=== PATIENT | male | born 1950 | race Caucasian/White ===

== ENCOUNTER → 2017-11-23 08:45 | Outpatient (CLI) | payer MEDICARE, SELFPAY ==
[2017-11-23 09:35] LABS: BUN Creatinine Ratio 11.7 (6-22); Blood Urea Nitrogen 14 mg/dL (9-20); Calcium 9.3 mg/dL (8.4-10.2); Carbon Dioxide 30 mmol/L (22-32); Chloride 103 mmol/L (98-107); Estimated Glomerular Filt Rate > 60.0 mL/min (>60); Glucose 92 mg/dL (80-110); HEMOLYSIS < 15 (0-50); Potassium 4.2 mmol/L (3.4-5.1); Sodium 144 mmol/L (137-145); Uric Acid 6.1 mg/dL (3.5-8.5)
== END ==
PROVIDERS: PCP Internal Medicine; Visit Provider Internal Medicine
DX: M10.00 Idiopathic gout, unspecified site (principal)
CPT/HCPCS: 36415; 80048; 84550

== ENCOUNTER → 2018-03-02 07:31 | Outpatient (CLI) | payer MEDICARE, SELFPAY ==
[2018-03-02 08:39] LABS: Blood Urea Nitrogen 11 mg/dL (9-20); Calcium 9.6 mg/dL (8.4-10.2); Carbon Dioxide 28 mmol/L (22-32); Chloride 106 mmol/L (98-107); Estimated Glomerular Filt Rate > 60.0 mL/min (>60); Glucose 91 mg/dL (80-110); HEMOLYSIS < 15 (0-50); Potassium 4.5 mmol/L (3.4-5.1); Sodium 142 mmol/L (137-145); Uric Acid 3.6 mg/dL (3.5-8.5)
== END ==
PROVIDERS: PCP Internal Medicine; Visit Provider Internal Medicine
DX: M10.00 Idiopathic gout, unspecified site (principal); N18.9 Chronic kidney disease, unspecified; I12.9 Hypertensive chronic kidney disease with stage 1 through stage 4 chronic kidney disease, or unspecified chronic kidney disease
CPT/HCPCS: 36415; 80048; 84550

== ENCOUNTER → 2018-08-29 09:22 | Outpatient (CLI) | payer MEDICARE, SELFPAY ==
[2018-08-29 11:07] LABS: BUN Creatinine Ratio 12.7 (6-22); Blood Urea Nitrogen 14 mg/dL (9-20); Calcium 9.6 mg/dL (8.4-10.2); Carbon Dioxide 28 mmol/L (22-32); Chloride 105 mmol/L (98-107); Cholesterol 164 mg/dL (140-199); Estimated Glomerular Filt Rate > 60.0 mL/min (>60); Glucose 92 mg/dL (80-110); HDL Cholesterol 30 mg/dL (40-60); HEMOLYSIS < 15 (0-50); LDL Cholesterol Calculated 105 mg/dL (<100); Potassium 4.7 mmol/L (3.4-5.1); Sodium 140 mmol/L (137-145); Triglycerides 144 mg/dL (35-150); Uric Acid 3.4 mg/dL (3.5-8.5)
== END ==
PROVIDERS: PCP Internal Medicine; Visit Provider Internal Medicine
DX: M10.00 Idiopathic gout, unspecified site (principal); I10 Essential (primary) hypertension; E78.00 Pure hypercholesterolemia, unspecified
CPT/HCPCS: 36415; 80048; 80061; 84550

== ENCOUNTER → 2019-03-09 08:41 | Outpatient (CLI) | payer MEDICARE, SELFPAY ==
[2019-03-09 10:18] LABS: BUN Creatinine Ratio 12.5 (6-22); Blood Urea Nitrogen 15 mg/dL (9-20); Calcium 9.4 mg/dL (8.4-10.2); Carbon Dioxide 29 mmol/L (22-32); Chloride 102 mmol/L (98-107); Estimated Glomerular Filt Rate > 60.0 mL/min (>60); Glucose 93 mg/dL (80-110); HEMOLYSIS < 15 (0-50); Potassium 4.5 mmol/L (3.4-5.1); Sodium 140 mmol/L (137-145)
[2019-03-09 10:49] LABS: Prostate Specific Antigen Scrn 2.82 ng/mL (0.1-4.0)
== END ==
PROVIDERS: PCP Internal Medicine; Visit Provider Internal Medicine
DX: Z00.00 Encounter for general adult medical examination without abnormal findings (principal); E78.00 Pure hypercholesterolemia, unspecified; Z12.5 Encounter for screening for malignant neoplasm of prostate
CPT/HCPCS: 36415; 80048; G0103

== ENCOUNTER → 2020-02-10 08:08 | Outpatient (CLI) | payer MEDICARE, SELFPAY ==
[2020-02-10 10:19] LABS: TSH w/ Reflex to FT4 2.79 uIU/mL (0.47-4.68)
== END ==
PROVIDERS: PCP Internal Medicine; Referring Provider Internal Medicine; Visit Provider Internal Medicine
DX: E03.8 Other specified hypothyroidism (principal); E03.9 Hypothyroidism, unspecified
CPT/HCPCS: 36415; 84443

== ENCOUNTER → 2020-05-11 08:16 | Outpatient (CLI) | payer MEDICARE, SELFPAY ==
[2020-05-11 09:15] LABS: Add Manual Diff / Slide Review NO; Basophils Absolute Auto 0 /uL (0-100); Basophils Percent Auto 0.9 % (0-2); Eosinophils Absolute Auto 100 /uL (0-450); Eosinophils Percent Auto 2.3 % (2-4); Hematocrit 44.1 % (41-53); Hemoglobin 14.9 g/dL (13.5-17.5); Lymphocytes Absolute Auto 800 /uL (1100-4500); Lymphocytes Percent Auto 15.3 % (25-40); Mean Corpuscular HGB Conc 33.9 % (30-36); Mean Corpuscular Hemoglobin 30.1 PG (26-34); Mean Corpuscular Volume 88.7 fL (80-100); Monocytes Absolute Auto 300 /uL (0-900); Monocytes Percent Auto 6.8 % (3-14); Neutrophils Absolute Auto 3700 /uL (1500-7000); Neutrophils Percent Auto 74.7 % (50-75); Platelet Count 179 X10^3/uL (150-400); Red Blood Cell Count 4.96 X10^6/uL (4.5-5.9); Red Cell Distribution Width 13.4 % (11.6-14.8); White Blood Cell Count 4.9 X10^3/uL (4.5-11.0)
[2020-05-11 09:44] LABS: Alanine Aminotransferase 24 IU/L (<50); Albumin 4.1 g/dL (3.5-5.0); Albumin Globulin Ratio 1.5 (1.0-2.8); Alkaline Phosphatase 56 U/L (38-126); Aspartate Aminotransferase 30 IU/L (17-59); BUN Creatinine Ratio 14.8 (6-22); Bilirubin Total 0.8 mg/dL (0.2-1.3); Blood Urea Nitrogen 17 mg/dL (9-20); Calcium 9.6 mg/dL (8.4-10.2); Carbon Dioxide 29 mmol/L (22-32); Chloride 104 mmol/L (98-107); Cholesterol 163 mg/dL (140-199); Estimated Glomerular Filt Rate > 60.0 mL/min (>60); Globulin 2.7 g/dL (1.7-4.1); Glucose 99 mg/dL (80-110); HDL Cholesterol 30 mg/dL (40-60); HEMOLYSIS < 15 (0-50); LDL Cholesterol Calculated 110 mg/dL (<100); Potassium 4.7 mmol/L (3.4-5.1); Sodium 137 mmol/L (137-145); Total Protein 6.8 g/dL (6.3-8.2); Triglycerides 115 mg/dL (35-150); Uric Acid 4.3 mg/dL (3.5-8.5)
[2020-05-11 10:12] LABS: TSH w/ Reflex to FT4 1.81 uIU/mL (0.47-4.68)
[2020-05-11 10:14] LABS: Prostate Specific Antigen Scrn 2.29 ng/mL (0.1-4.0)
== END ==
PROVIDERS: PCP Internal Medicine; Referring Provider Internal Medicine; Visit Provider Internal Medicine
DX: E03.9 Hypothyroidism, unspecified (principal); Z12.5 Encounter for screening for malignant neoplasm of prostate; E78.00 Pure hypercholesterolemia, unspecified; M10.00 Idiopathic gout, unspecified site
CPT/HCPCS: 36415; 80053; 80061; 84443; 84550; 85025; G0103

== ENCOUNTER → 2022-04-02 14:55 | Outpatient (CLI) | payer MEDICARE, SELFPAY ==
[2022-04-02 15:51] LABS: Hematocrit 43.8 % (41-53); Hemoglobin 15.3 g/dL (13.5-17.5); Mean Corpuscular HGB Conc 34.9 % (30-36); Mean Corpuscular Hemoglobin 30.7 PG (26-34); Platelet Count 194 X10^3/uL (150-400); Red Blood Cell Count 4.98 X10^6/uL (4.5-5.9); Red Cell Distribution Width 13.8 % (11.6-14.8); White Blood Cell Count 6.5 X10^3/uL (4.5-11.0)
[2022-04-02 16:46] LABS: TSH w/ Reflex to FT4 0.78 uIU/mL (0.47-4.68)
[2022-04-02 18:39] LABS: Alanine Aminotransferase 19 IU/L (<50); Albumin 4.7 g/dL (3.5-5.0); Albumin Globulin Ratio 1.3 (1.0-2.8); Alkaline Phosphatase 56 U/L (38-126); Aspartate Aminotransferase 28 IU/L (17-59); BUN Creatinine Ratio 12.9 (6-22); Bilirubin Total 0.9 mg/dL (0.2-1.3); Blood Urea Nitrogen 16 mg/dL (9-20); Calcium 9.8 mg/dL (8.4-10.2); Carbon Dioxide 29 mmol/L (22-32); Chloride 101 mmol/L (98-107); Cholesterol 218 mg/dL (140-199); Estimated Glomerular Filt Rate > 60 mL/min (>60); Globulin 3.5 g/dL (1.7-4.1); Glucose 96 mg/dL (80-110); HDL Cholesterol 32 mg/dL (40-60); HEMOLYSIS < 15 (0-50); LDL Cholesterol Calculated 144 mg/dL (<100); Potassium 4.6 mmol/L (3.4-5.1); Sodium 141 mmol/L (137-145); Total Protein 8.2 g/dL (6.3-8.2); Triglycerides 208 mg/dL (35-150); Uric Acid 3.6 mg/dL (3.5-8.5)
[2022-04-02 19:00] LABS: Prostate Specific Antigen 3.36 ng/mL (0.10-4.00)
[2022-04-02 19:02] LABS: Testosterone 363 ng/dL (71.8-623)
== END ==
PROVIDERS: PCP Internal Medicine; Referring Provider Internal Medicine; Visit Provider Internal Medicine
DX: E03.9 Hypothyroidism, unspecified (principal); E78.2 Mixed hyperlipidemia; N40.0 Benign prostatic hyperplasia without lower urinary tract symptoms; M10.9 Gout, unspecified; E34.9 Endocrine disorder, unspecified
CPT/HCPCS: 36415; 80053; 80061; 84153; 84403; 84443; 84550; 85027

== ENCOUNTER → 2023-04-05 08:32 | Outpatient (CLI) | payer MEDICARE, SELFPAY ==
[2023-04-05 10:09] LABS: Aspartate Aminotransferase 29 IU/L (17-59); BUN Creatinine Ratio 15.9 (6-22); Blood Urea Nitrogen 21 mg/dL (9-20); Calcium 9.9 mg/dL (8.4-10.2); Carbon Dioxide 29 mmol/L (22-32); Chloride 105 mmol/L (98-107); Cholesterol 109 mg/dL (140-199); Estimated Glomerular Filt Rate 58 mL/min (>60); Glucose 97 mg/dL (80-110); HDL Cholesterol 32 mg/dL (40-60); HEMOLYSIS < 15 (0-50); LDL Cholesterol Calculated 56 mg/dL (<100); Potassium 4.7 mmol/L (3.4-5.1); Sodium 140 mmol/L (137-145); Triglycerides 104 mg/dL (35-150)
[2023-04-05 10:40] LABS: Prostate Specific Antigen 3.78 ng/mL (0.10-4.00); TSH w/ Reflex to FT4 1.38 uIU/mL (0.47-4.68)
== END ==
PROVIDERS: PCP Internal Medicine; Referring Provider Internal Medicine; Visit Provider Internal Medicine
DX: E78.2 Mixed hyperlipidemia (principal); N40.1 Benign prostatic hyperplasia with lower urinary tract symptoms; N13.8 Other obstructive and reflux uropathy; E03.9 Hypothyroidism, unspecified
CPT/HCPCS: 36415; 80048; 80061; 84153; 84443; 84450

== ENCOUNTER → 2023-05-04 10:35 | Outpatient (ROUT) | payer MEDICARE, SELFPAY | PROVIDERS: PCP Internal Medicine; Visit Provider Dermatology | DX: Z48.817 Encounter for surgical aftercare following surgery on the skin and subcutaneous tissue (principal) | CPT/HCPCS: 87070; 87075; 87077; 87147; 87186; 87205 ==

== ENCOUNTER → 2024-04-24 12:00 | Outpatient (CLI) | payer MEDICARE, SELFPAY ==
[2024-04-24 13:11] LABS: Hematocrit 41.4 % (41-53); Hemoglobin 14.3 g/dL (13.5-17.5); Mean Corpuscular HGB Conc 34.5 % (30-36); Mean Corpuscular Hemoglobin 30.2 PG (26-34); Mean Corpuscular Volume 87.7 fL (80-100); Platelet Count 187 X10^3/uL (150-400); Red Blood Cell Count 4.72 X10^6/uL (4.5-5.9); Red Cell Distribution Width 14.2 % (11.6-14.8); White Blood Cell Count 7.1 X10^3/uL (4.5-11.0)
[2024-04-24 15:54] LABS: TSH w/ Reflex to FT4 0.69 uIU/mL (0.47-4.68)
[2024-04-24 17:19] LABS: Aspartate Aminotransferase 29 IU/L (17-59); BUN Creatinine Ratio 15.8 (6-22); Blood Urea Nitrogen 23 mg/dL (9-20); Calcium 9.6 mg/dL (8.4-10.2); Carbon Dioxide 27 mmol/L (22-32); Chloride 103 mmol/L (98-107); Cholesterol 105 mg/dL (140-199); Estimated Glomerular Filt Rate 51 mL/min (>60); Glucose 85 mg/dL (80-110); HDL Cholesterol 31 mg/dL (40-60); HEMOLYSIS < 15 (0-50); LDL Cholesterol Calculated 45 mg/dL (<100); Sodium 140 mmol/L (137-145); Triglycerides 147 mg/dL (35-150)
== END ==
PROVIDERS: PCP Internal Medicine; Referring Provider Internal Medicine; Visit Provider Internal Medicine
DX: E03.9 Hypothyroidism, unspecified (principal); N40.1 Benign prostatic hyperplasia with lower urinary tract symptoms; E78.2 Mixed hyperlipidemia; M10.9 Gout, unspecified; N13.8 Other obstructive and reflux uropathy
CPT/HCPCS: 36415; 80048; 80061; 84153; 84443; 84450; 85027

== ENCOUNTER → 2024-05-02 14:16 | Outpatient (CLI) | payer MEDICARE, SELFPAY | PROVIDERS: PCP Internal Medicine; Visit Provider Urology | DX: R39.9 Unspecified symptoms and signs involving the genitourinary system (principal) | CPT/HCPCS: 87086 ==

== ENCOUNTER → 2024-05-04 07:01 | Outpatient (CLI) | payer MEDICARE, SELFPAY ==
--- NOTE | 2024-05-04 07:02 | DI.US.S_ITS ---
PROCEDURE: US RENAL DOPPLER INDICATIONS: elevated creatinine TECHNIQUE: Real time scanning was performed of both kidneys, followed by Color and pulsed Doppler interrogation of the renal vessels. COMPARISON: None. FINDINGS: Aortic peak systolic velocity: 58 Right side: Cai-scale imaging: Kidney is 15.3 cm long. No hydronephrosis. No nephrolithiasis. Renal cortex is normal in echogenicity. No suspicious solid renal masses. Large, benign cysts are present, largest measuring 10 x 8 x 10 cm. Proximal renal artery peak systolic velocity: 195 cm/s. Mid renal artery peak systolic velocity: 114 cm/s. Distal renal artery peak systolic velocity: 54 cm/s. Renal vein: Patent, without thrombus. Peak renal/aortic ratio (RAR): 3.4 Left side: Cai-scale imaging: Kidney is 9.9 cm long. No hydronephrosis. No nephrolithiasis. Renal cortex is normal in echogenicity. No suspicious solid renal masses. Proximal renal artery peak systolic velocity: 142 cm/s. Mid-renal artery peak systolic velocity: 50 cm/s. Distal renal artery peak systolic velocity: 45 cm/s. Renal vein: Patent, without thrombus. Peak renal/aortic ratio (RAR): 2.4 IMPRESSION: The proximal right renal artery peak systolic velocity is at the high limits of normal at 195 centimeters/second. The peak renal/aortic ratio is also with high limits of normal at 3.4. Dictated by: Master Mena M.D. on 05/10/2024 at 15:19 Approved by: Master Mena M.D. on 05/10/2024 at 15:22
== END ==
PROVIDERS: PCP Internal Medicine; Referring Provider Internal Medicine; Visit Provider Internal Medicine
DX: R79.89 Other specified abnormal findings of blood chemistry (principal)
CPT/HCPCS: 76770; 93975; 93976

== ENCOUNTER → 2024-05-11 13:54 | Outpatient (CLI) | payer MEDICARE, SELFPAY ==
[2024-05-11 15:17] LABS: BUN Creatinine Ratio 12.5 (6-22); Blood Urea Nitrogen 17 mg/dL (9-20); Calcium 9.6 mg/dL (8.4-10.2); Carbon Dioxide 27 mmol/L (22-32); Chloride 103 mmol/L (98-107); Estimated Glomerular Filt Rate 56 mL/min (>60); Glucose 93 mg/dL (80-110); HEMOLYSIS < 15 (0-50); Potassium 4.2 mmol/L (3.4-5.1); Sodium 140 mmol/L (137-145)
== END ==
LOC: LAB 13:55
PROVIDERS: PCP Internal Medicine; Referring Provider Internal Medicine; Visit Provider Internal Medicine
DX: R79.89 Other specified abnormal findings of blood chemistry (principal)
CPT/HCPCS: 36415; 80048

== ENCOUNTER → 2024-06-05 12:31 | Outpatient (CLI) | payer MEDICARE, SELFPAY ==
[2024-06-05 13:45] LABS: BUN Creatinine Ratio 14.6 (6-22); Blood Urea Nitrogen 22 mg/dL (9-20); Calcium 9.9 mg/dL (8.4-10.2); Carbon Dioxide 26 mmol/L (22-32); Chloride 102 mmol/L (98-107); Estimated Glomerular Filt Rate 49 mL/min (>60); Glucose 106 mg/dL (80-110); HEMOLYSIS < 15 (0-50); Potassium 4.6 mmol/L (3.4-5.1); Sodium 137 mmol/L (137-145)
== END ==
PROVIDERS: PCP Internal Medicine; Referring Provider Urology; Visit Provider Urology
DX: R94.4 Abnormal results of kidney function studies (principal)
CPT/HCPCS: 36415; 80048

== ENCOUNTER → 2024-09-18 09:27 | Outpatient (CLI) | payer MEDICARE, SELFPAY ==
[2024-09-18 10:46] LABS: Microalbumi Creatinin Ratio Ur 878.0 ug/mg CR (<30)
== END ==
PROVIDERS: PCP Internal Medicine; Referring Provider Internal Medicine; Visit Provider Internal Medicine
DX: R80.9 Proteinuria, unspecified (principal)
CPT/HCPCS: 82043; 82570

== ENCOUNTER → 2024-11-06 13:16 | Outpatient (CLI) | payer MEDICARE, SELFPAY ==
[2024-11-06 14:14] LABS: Hematocrit 41.7 % (41-53); Hemoglobin 14.1 g/dL (13.5-17.5)
[2024-11-06 14:32] LABS: Blood Urea Nitrogen 20 mg/dL (9-20); Calcium 9.3 mg/dL (8.4-10.2); Carbon Dioxide 25 mmol/L (22-32); Chloride 103 mmol/L (98-107); Estimated Glomerular Filt Rate 51 mL/min (>60); Glucose 84 mg/dL (70-99); HEMOLYSIS < 15 (0-50); Potassium 4.4 mmol/L (3.4-5.1); Sodium 139 mmol/L (137-145)
[2024-11-06 14:50] LABS: Protein (Total) Urine Random 111 mg/dL (0-12); Protein Creatinine Ratio Urine 1.57 GRAM/24H
== END ==
PROVIDERS: PCP Internal Medicine; Referring Provider Student in an Organized Health Care Education/Training Program; Visit Provider Student in an Organized Health Care Education/Training Program
DX: D70.9 Neutropenia, unspecified (principal); N05.9 Unspecified nephritic syndrome with unspecified morphologic changes; R80.9 Proteinuria, unspecified; D63.1 Anemia in chronic kidney disease
CPT/HCPCS: 36415; 80048; 82570; 84156; 85014; 85018

== ENCOUNTER → 2024-12-18 13:35 | Outpatient (CLI) | payer MEDICARE, SELFPAY ==
[2024-12-18 14:05] LABS: Hematocrit 40.0 % (41-53); Hemoglobin 14.1 g/dL (13.5-17.5)
[2024-12-18 14:34] LABS: Protein (Total) Urine Random 61 mg/dL (0-12); Protein Creatinine Ratio Urine 0.82 GRAM/24H
[2024-12-18 14:38] LABS: Blood Urea Nitrogen 22 mg/dL (9-20); Calcium 9.5 mg/dL (8.4-10.2); Carbon Dioxide 25 mmol/L (22-32); Chloride 102 mmol/L (98-107); Estimated Glomerular Filt Rate 51 mL/min (>60); Glucose 92 mg/dL (70-99); HEMOLYSIS < 15 (0-50); Potassium 4.6 mmol/L (3.4-5.1); Sodium 137 mmol/L (137-145)
== END ==
PROVIDERS: PCP Internal Medicine; Referring Provider Student in an Organized Health Care Education/Training Program; Visit Provider Student in an Organized Health Care Education/Training Program
DX: D70.9 Neutropenia, unspecified (principal); N05.9 Unspecified nephritic syndrome with unspecified morphologic changes; D63.1 Anemia in chronic kidney disease; N25.81 Secondary hyperparathyroidism of renal origin; R80.9 Proteinuria, unspecified
CPT/HCPCS: 36415; 80048; 82570; 83970; 84156; 85014; 85018

== ENCOUNTER 2024-12-21 13:16 | Emergency (ER) | payer MEDICARE, SELFPAY ==
[2024-12-21 13:27] VITALS: BP 144/81; PULSE 70; RESP 16; TEMP 36.6; O2SAT 100; BMI 22.3
--- NOTE | 2024-12-21 13:39 | EKG_ITS ---
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
[2024-12-21 13:40] VITALS: PULSE 68; RESP 18; O2SAT 100
--- NOTE | 2024-12-21 13:48 | PC.NURSE ---
Patient reports problems with left ear- cochlea.
--- NOTE | 2024-12-21 14:01 | ED.DIZZY ---
HPI - Dizziness General Chief Complaint: Dizziness Stated Complaint: dizziness x30 min Time Seen by Provider: 12/21/24 13:48 Source: patient Mode of arrival: Wheelchair History of Present Illness HPI Narrative: Patient here with his . Complaints sudden onset of dizziness at 11:00 a.m. today while in the shower. It has been coming and going. He does not have much relief time of dizziness. He does have horizontal nystagmus. Patient has history of nontraumatic cochlear loss about 12 years ago. However he states he has not had dizzy episodes with the loss of the cochlea. He does have hearing loss. No cochlear implant. Patient denies any history of heart attack strokes or diabetes. He does have chronic kidney disease. Patient has had nausea. Dizziness is better when he closes his eyes. Fast exam is negative. Crowell score of 0. Related Data Home Medications ?Medication ?Instructions ?Recorded ?Confirmed epinephrine 0.3 mg/0.3 mL 0.3 mg IM ONCE 04/24/24 09/18/24 injection, auto-injector (EpiPen) Previous Rx's ?Medication ?Instructions ?Recorded colchicine 0.6 mg tablet 0.6 mg PO BID PRN Gout flare-up 04/05/23 #16 tabs allopurinol 300 mg tablet 300 mg PO DAILY Gout #90 tabs 04/24/24 levothyroxine 75 mcg tablet 75 mcg PO DAILY #90 tabs 04/24/24 rosuvastatin 10 mg tablet 10 mg PO DAILY #90 tabs 04/24/24 sildenafil 50 mg tablet 50 mg PO DAILY PRN sexual activity 04/24/24 #12 tabs tamsulosin 0.4 mg capsule 0.4 mg PO DAILY #90 caps 09/18/24 meclizine 25 mg tablet 50 mg (2 x 25 mg) PO TID #18 tabs 12/21/24 ondansetron 4 mg disintegrating 4 mg PO Q6H PRN nausea and 12/21/24 tablet vomiting #20 tabs Allergies Allergy/AdvReac Type Severity Reaction Status Date / Time penicillin V (PENICILLIN V) Allergy Mild TURNED RED Verified 12/21/24 13:27 bee stings Allergy Severe Redness of Uncoded 12/21/24 13:27 Skin, itching, trouble breathing Review of Systems Review of Systems Narrative: GENERAL: Negative chills, fatigue, malaise, fever, sweats. HEENT: Negative sinus pain, ear pain, sore throat RESPIRATORY: Negative dyspnea, cough CARDIOVASCULAR: Negative chest pain, palpitations GASTROINTESTINAL: Negative vomiting, positive nausea, negative abdominal pain : Negative dysuria, frequency, hematuria MUSCULOSKELETAL: Negative muscle or bony pain SKIN: Negative rash, skin lesions NEUROLOGIC: Negative weakness, numbness, positive dizziness, negative slurred speech negative facial droop ROS Unobtainable: All systems reviewed & are unremarkable except as noted in HPI and below Patient History Medical History (Updated 12/21/24 @ 14:56 by Ferdinand Cook MD) Albuminuria Chronic kidney disease, stage 3a Elevated serum creatinine Genitourinary trauma Decreased GFR Incomplete emptying of bladder BPH w urinary obs/LUTS Hearing decreased Actinic keratosis (~2009) Hyperthyroidism (~01/2020) Skin cancer History of colonic polyps Erectile dysfunction Mixed hyperlipidemia Gout (~2017) Acquired hypothyroidism Surgical History Anesthesia Status post discectomy Family History Father Cancer Sister Cancer Social History details: ([place]), grown children, retired [employer] Smoking Status: Never smoker Smoking Status: Never smoker Exam Narrative Exam Narrative: GENERAL: in no distress, not toxic not dyspneic HEAD: Normocephalic. EYES: Pupils equal round horizontal nystagmus when gazing to the left. And slightly when to the right. ENT: Mucous membranes moist. NECK: Trachea midline. CARDIOVASCULAR: Regular rate and rhythm RESPIRATORY: Clear to auscultation. Breath sounds equal bilaterally. No wheezes, rales, or rhonchi. GASTROINTESTINAL: Abdomen soft, non-tender BACK: No flank tenderness. EXTREMITIES: No gross deformities. NEURO: AOx4. 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 Negative pronator drift. No leg drift. There is horizontal nystagmus to the left. SKIN: Warm and dry PSYCH: Not anxious, is cooperative Initial Vital Signs Initial Vital Signs: Vital Signs Temperature 98 F 12/21/24 13:27 Pulse Rate 70 12/21/24 13:27 Respiratory Rate 16 12/21/24 13:27 Blood Pressure 144/81 H 12/21/24 13:27 Pulse Oximetry 100 12/21/24 13:27 Oxygen Delivery Method Room Air 12/21/24 13:27 Course Orders Ordered: ED Orders 12/21/24 13:40 Complete Blood Count AUTO DIFF Stat Comprehensive Metabolic Panel Stat 12/21/24 13:45 EKG-12 Lead Stat 12/21/24 13:59 CT angio head and neck Stat CT head/brain wo con Stat Discontinued Medications Sodium Chloride (Normal Saline 0.9%) 1,000 mls @ 1,000 mls/hr IV BOLUS ONE Stop: 12/21/24 14:58 Last Admin: 12/21/24 14:26 Dose: 1,000 mls/hr Documented By: TOÑO Meclizine HCl (Meclizine Hcl 12.5 Mg Tablet) 50 mg PO NOW ONE Stop: 12/21/24 14:00 Meclizine HCl (Meclizine Hcl 12.5 Mg Tablet) 50 mg PO NOW ONE Stop: 12/21/24 14:20 Last Admin: 12/21/24 14:26 Dose: 50 mg Documented By: TOÑO Ondansetron HCl (Ondansetron 4 Mg/2 Ml Inj) 4 mg IV NOW ONE Stop: 12/21/24 14:00 Last Admin: 12/21/24 14:26 Dose: 4 mg Documented By: TOÑO Vital Signs Vital signs: Vital Signs - 8 hr 12/21/24 13:27 12/21/24 13:40 12/21/24 14:15 Temperature 98 F Pulse Rate 70 68 71 Respiratory Rate 16 18 18 Blood Pressure 144/81 H 157/79 H Pulse Oximetry 100 100 100 Oxygen Delivery Method Room Air Room Air 12/21/24 14:30 12/21/24 15:00 12/21/24 15:07 Temperature Pulse Rate 72 75 72 Respiratory Rate 16 16 9 L Blood Pressure 158/77 H 172/83 H Pulse Oximetry 100 99 100 Oxygen Delivery Method Room Air Room Air MDM - Dizziness Lab Data 12/21/24 13:40 12/21/24 13:40 Labs: Lab Results 12/21/24 Range/Units 13:40 WBC 8.0 (4.5-11.0) X10^3/uL RBC 4.77 (4.5-5.9) X10^6/uL Hgb 14.3 (13.5-17.5) g/dL Hct 41.0 (41-53) % MCV 85.9 (80-100) fL MCH 30.0 (26-34) PG MCHC 34.9 (30-36) % RDW 14.0 (11.6-14.8) % Plt Count 183 (150-400) X10^3/uL Neut % (Auto) 83.0 H (50-75) % Lymph % (Auto) 11.1 L (25-40) % Rogers % (Auto) 4.7 (3-14) % Eos % (Auto) 0.8 L (2-4) % Baso % (Auto) 0.4 (0-2) % Neut # (Auto) 6700 (9038-3047) /uL Lymph # (Auto) 900 L (2192-8100) /uL Rogers # (Auto) 400 (0-900) /uL Eos # (Auto) 100 (0-450) /uL Baso # (Auto) 0 (0-100) /uL Sodium 137 (137-145) mmol/L Potassium 3.9 (3.4-5.1) mmol/L Chloride 103 (98-107) mmol/L Carbon Dioxide 26 (22-32) mmol/L BUN 23 H (9-20) mg/dL Creatinine 1.42 H (0.66-1.25) mg/dL Estimated GFR 53 L (>60) mL/min BUN/Creatinine Ratio 16.2 (6-22) Glucose 102 H (70-99) mg/dL Calcium 9.4 (8.4-10.2) mg/dL Total Bilirubin 0.9 (0.2-1.3) mg/dL AST 26 (17-59) IU/L ALT 13 (<50) IU/L Alkaline Phosphatase 61 (38-126) U/L Total Protein 7.3 (6.3-8.2) g/dL Albumin 4.3 (3.5-5.0) g/dL Globulin 3.0 (1.7-4.1) g/dL Albumin/Globulin Ratio 1.4 (1.0-2.8) Imaging Data CTA - brain/neck: Radiologist's Impression: [address] [address] [address] Scan Report Signed Patient: ErikaAydin MR#: [id number] : 1950 Acct:[id number] Age/Sex: 74 / M Date of Service: 12/21/24 Loc: ED Accession Number: [id number] Procedure: CT angio head and neck Ordering Provider: Ferdinand Cook MD PROCEDURE: CT ANGIO HEAD AND NECK INDICATIONS: Dizziness Dizziness TECHNIQUE: After the administration of intravenous contrast, 1 mm thick sections acquired from the aortic arch through the [place]. 3-dimensional akouqrf-zvstxxylr-wtrafnkkzc (MIP) and/or volume rendering reformats were acquired of the central intracranial vasculature and neck separately. For radiation dose reduction, the following was used: automated exposure control, adjustment of mA and/or kV according to patient size. COMPARISON: None. FINDINGS: Image quality: Diagnostic. Cerebral CT Angiogram: Internal carotid arteries: No acute findings. Intracranial ICA are patent with no significant stenosis. No occlusion. No aneurysm. Anterior cerebral arteries: Unremarkable. No significant stenosis. No occlusion. No aneurysm. Middle cerebral arteries: Unremarkable. No significant stenosis. No occlusion. No aneurysm. Posterior cerebral arteries: Unremarkable. No significant stenosis. No occlusion. No aneurysm. Basilar artery: Unremarkable. No significant stenosis. No occlusion. No aneurysm. Vertebral arteries: Unremarkable as visualized. Dural venous sinuses: Unremarkable given phase of enhancement. Other: Please see the separately dictated report from the noncontrast CT of the head performed at the same time. No abnormal intracranial arterial-phase enhancement. Neck CT Angiogram: Internal carotid arteries: Focal less than 50% narrowing of the left internal carotid artery at the carotid bifurcation. Right carotid bifurcation is patent. No dissection or occlusion. Common carotid arteries: Unremarkable. No significant stenosis. No dissection or occlusion. External carotid arteries: Unremarkable. No occlusion. Vertebral arteries: Unremarkable. No significant stenosis. No dissection or occlusion. Aortic Arch and Mediastinum: Partially visualized aortic arch unremarkable without evidence of aneurysm. Left vertebral artery arises directly from the aorta, a normal variant. Left common carotid artery arises from the brachiocephalic trunk. Origins of the great vessels unremarkable. Other: Arterial phase soft tissues of the neck and chest are unremarkable. IMPRESSION: No significant intracranial arterial abnormality is seen. Less than 50% narrowing of the left internal carotid artery at the carotid bifurcation. Any quantitative measurements of stenosis were performed using NASCET criteria. Approved by: Christiano Pantoja M.D. on 12/21/2024 at 14:32 CT scan - head: Radiologist's Impression: [address] [address] [address] Scan Report Signed Patient: Aydin James MR#: [id number] : 1950 Acct:[id number] Age/Sex: 74 / M Date of Service: 12/21/24 Loc: ED Accession Number: [id number] Procedure: CT head/brain wo con Ordering Provider: Ferdinand Cook MD PROCEDURE: CT HEAD/BRAIN WO CON INDICATIONS: Dizziness TECHNIQUE: Noncontrast 4.5 mm thick angled axial sections acquired from the foramen magnum to the vertex, with coronal and sagittal reformats. For radiation dose reduction, the following was used: automated exposure control, adjustment of mA and/or kV according to patient size. COMPARISON: None. FINDINGS: Image quality: Diagnostic. CSF spaces: Basal cisterns are patent. No extra-axial fluid collections. The ventricles are symmetric in size and shape. Brain: No acute intracranial hemorrhage or mass effect. There is cerebral volume loss, with resultant ventricular and sulcal prominence. There are periventricular and deep white matter chronic small vessel ischemic changes. There is intracranial internal carotid artery atherosclerosis. Skull and face: Calvarium and visualized facial bones appear intact, without suspicious lesions. Sinuses: Visualized sinuses and mastoids are clear. IMPRESSION: No acute intracranial pathology. Approved by: Christiano Pantoja M.D. on 12/21/2024 at 14:26 MDM Narrative Medical decision making narrative: Patient here with his . Complaints sudden onset of dizziness at 11:00 a.m. today while in the shower. It has been coming and going. He does not have much relief time of dizziness. He does have horizontal nystagmus. Patient has history of nontraumatic cochlear loss about 12 years ago. However he states he has not had dizzy episodes with the loss of the cochlea. He does have hearing loss. No cochlear implant. Patient denies any history of heart attack strokes or diabetes. He does have chronic kidney disease. Patient has had nausea. Dizziness is better when he closes his eyes. Fast exam is negative. Crowell score of 0. MDM After history and exam, CT head CT angiogram head and neck normal saline Zofran Antivert EKG CBC CMP Differential considered: Includes but not limited to TIA stroke vertigo labyrinthitis arrhythmia Medical records reviewed: No recent visit for this complaint Lab Test results independently reviewed as above. Pertinent findings: WBC 8.0 hemoglobin 14.3 sodium 137 potassium 3.9 BUN 23 creatinine 1.42 GFR 53, renal function at baseline. IV fluids have been given with IV contrast CT, Independently reviewed EKG normal sinus rhythm right bundle branch block rate 73 Imaging studies independently reviewed: CT head CT angiogram head and neck no acute finding Consultations: None indicated at this time Re-evaluations: 2:52 p.m.. Re-evaluation and patient's symptoms have resolved. No nausea no dizziness. No nystagmus. Patient able to rotate his head and neck and look around the room without dizziness. Reviewed results with patient and . Likely vertigo causing symptoms. Prescription for Antivert provided. Return precautions reviewed. They desire discharge home. Discussion: Appropriate for discharge home. Clinically not stroke TIA. Symptoms resolved with Antivert. Return precautions reviewed with patient. IV fluids were given for renal hydration. IV contrast was used for CT imaging. Return precautions reviewed and patient desires discharge home. Diagnosis: Vertigo Discharge Plan Departure Patient Disposition: Home Clinical Impression: Vertigo Instructions: DI for Vertigo Activity Restrictions/Additional Instructions: I am glad you are feeling better. You are being treated for vertigo. Prescription has been sent to your pharmacy to continue. Please see your family doctor within a week for re-evaluation. Return if worse if any questions or concerns. Prescriptions: New ondansetron 4 mg tablet,disintegrating 4 mg PO Q6H PRN (Reason: nausea and vomiting) Qty: 20 0RF meclizine 25 mg tablet 50 mg PO TID Qty: 18 0RF No Action allopurinol 300 mg tablet 300 mg PO DAILY Qty: 90 3RF levothyroxine 75 mcg tablet 75 mcg PO DAILY Qty: 90 3RF rosuvastatin 10 mg tablet 10 mg PO DAILY Qty: 90 3RF sildenafil 50 mg tablet 50 mg PO DAILY PRN (Reason: sexual activity) Qty: 12 5RF Rx Instructions: administer 30 minutes to 4 hours before activity epinephrine [EpiPen] 0.3 mg/0.3 mL auto-injector 0.3 mg IM ONCE Rx Instructions: as a single dose; may repeat once colchicine 0.6 mg tablet 0.6 mg PO BID PRN (Reason: Gout flare-up) Qty: 16 0RF tamsulosin 0.4 mg capsule 0.4 mg PO DAILY Qty: 90 3RF Referrals: Delano Pineda MD [Primary Care Provider, Internal Medicine] Stand Alone Forms: Patient Portal/API
[2024-12-21 14:05] LABS: Add Manual Diff / Slide Review NO; Hematocrit 41.0 % (41-53); Hemoglobin 14.3 g/dL (13.5-17.5); Lymphocytes Absolute Auto 900 /uL (1100-4500); Mean Corpuscular HGB Conc 34.9 % (30-36); Mean Corpuscular Hemoglobin 30.0 PG (26-34); Mean Corpuscular Volume 85.9 fL (80-100); Platelet Count 183 X10^3/uL (150-400)
[2024-12-21 14:10] LABS: Alanine Aminotransferase 13 IU/L (<50); Albumin 4.3 g/dL (3.5-5.0); Albumin Globulin Ratio 1.4 (1.0-2.8); Alkaline Phosphatase 61 U/L (38-126); Blood Urea Nitrogen 23 mg/dL (9-20); Calcium 9.4 mg/dL (8.4-10.2); Carbon Dioxide 26 mmol/L (22-32); Chloride 103 mmol/L (98-107); Estimated Glomerular Filt Rate 53 mL/min (>60); Globulin 3.0 g/dL (1.7-4.1); Glucose 102 mg/dL (70-99); HEMOLYSIS 18 (0-50); Potassium 3.9 mmol/L (3.4-5.1); Sodium 137 mmol/L (137-145); Total Protein 7.3 g/dL (6.3-8.2)
[2024-12-21 14:15] VITALS: BP 157/79; PULSE 71; RESP 18; O2SAT 100
[2024-12-21] MEDS: MECLIZINE HCL 12.5 MG TABLET 50 MG PO (14:26)
[2024-12-21] MEDS: ONDANSETRON 4 MG/2 ML INJ IV (14:26)
[2024-12-21] MEDS: SODIUM CHLORIDE 0.9% 1,000 ML 1000 ML IV (14:26)
[2024-12-21 14:30] VITALS: BP 158/77; PULSE 72; RESP 16; O2SAT 100
[2024-12-21 15:00] VITALS: BP 172/83; PULSE 75; RESP 16; O2SAT 99
[2024-12-21 15:07] VITALS: PULSE 72; RESP 9; O2SAT 100
== END 2024-12-21 15:34 | disposition home or self-care (01) ==
PROVIDERS: Emergency Provider Emergency Medicine; PCP Internal Medicine
DX: R42 Dizziness and giddiness (principal)
CPT/HCPCS: 36415; 70450; 70496; 70498; 80053; 85025; 93005; 93010; 96374; 99284; J2405; J7030; Q9967